=== PATIENT | male | born 1995 | race Caucasian/White ===

== ENCOUNTER 2022-02-09 04:51 | Emergency (ER) | payer MEDICAID ==
[~2022-02-09] VITALS: Ht 175.3 cm; Wt 82.0 kg
[2022-02-09] MEDS ORDERED: MORPHINE SULFATE 2 MG/ML CPJ (NOT FOR IM USE) IV ONE (05:30)
[2022-02-09] MEDS ORDERED: SODIUM CHLORIDE 0.9% 1,000 ML IV ONE (05:30)
[2022-02-09 05:42] LABS: BASOPHILS % 0.5 % (0.0-2.0); EOSINOPHILS % 0.9 % (0.0-5.0); HEMATOCRIT. 48.6 % (42.0-52.0); HEMOGLOBIN. 16.4 g/dL (14.0-18.0); LYMPHOCYTES % 7.6 % (20.0-50.0); MEAN CORPUSCULAR HEMOGLOBIN 33.3 pg (28.0-32.0); MEAN CORPUSCULAR VOLUME 98.3 fL (80.0-94.0); MEAN PLATELET VOLUME 10.3 fl (7.4-10.4); MONOCYTES % 4.2 % (2.0-8.0); NEUTROPHILS % 86.8 % (40.0-76.0); PLATELET 253 x1000/uL (130-400); RED BLOOD CELL COUNT 4.94 mill/uL (4.7-6.1); RED CELL DISTRIBUTION WIDTH 12.6 % (11.6-14.6)
[2022-02-09 05:53] LABS: CHLORIDE 109 mEq/L (98-107)
[2022-02-09 05:56] LABS: PROTHROMBIN TIME 10.3 sec (9.6-11.0)
[2022-02-09 06:06] LABS: ETHANOL BLOOD 313 mg/dL
[2022-02-09 06:20] VITALS: BP 127/81
== END 2022-02-09 06:19 | disposition short-term general hospital (02) ==
LOC: ER 04:51 → EDBD 04:51 → ER 06:19
DX: S20.219A Contusion of unspecified front wall of thorax, initial encounter (principal); S41.112A Laceration without foreign body of left upper arm, initial encounter; W11.XXXA Fall on and from ladder, initial encounter; Y93.89 Activity, other specified; Y92.9 Unspecified place or not applicable; R10.9 Unspecified abdominal pain; R31.9 Hematuria, unspecified; F10.129 Alcohol abuse with intoxication, unspecified; Y90.8 Blood alcohol level of 240 mg/100 ml or more
CPT/HCPCS: 36415; 71045; 72170; 80053; 80320; 85025; 85610; 96361; 96374; 99285; J2270; J7030; G0480